=== PATIENT | female | born 1945 | race Caucasian/White ===

== ENCOUNTER → 2016-06-02 17:03 | Outpatient (CLI) | payer MEDICARE, OTHER ==
[2016-02-10 07:26] VITALS: BMI 31.2
[~2016-06-02 17:03] MED LIST: ACETAMINOPHEN325 MG PO; AMPYRA10 MG PO; ASPIRIN325 MG PO; BAYER CHEWABLE81 MG PO; COZAAR50 MG PO; CRESTOR10 MG PO; GLUCOTROL XL 5 M5 MG PO; LASIX20 MG PO; NORVASC5 MG PO; PLAVIX75 MG PO
== END | disposition home or self-care (01) ==
LOC: D.MAMMO 06-01 14:30
DX: Z12.31 Encounter for screening mammogram for malignant neoplasm of breast (principal)

== ENCOUNTER → 2017-09-23 10:00 | Outpatient (CLI) | payer MEDICARE, OTHER ==
[2016-02-10 07:26] VITALS: BMI 31.2
== END | disposition home or self-care (01) ==
LOC: D.MAMMO 10:00
DX: Z12.31 Encounter for screening mammogram for malignant neoplasm of breast (principal)

== ENCOUNTER → 2017-11-14 12:10 | Outpatient (CLI) | payer MEDICARE, OTHER ==
[2016-02-10 07:26] VITALS: BMI 31.2
== END | disposition home or self-care (01) ==
LOC: D.CT 12:10
DX: I71.4 Abdominal aortic aneurysm, without rupture (principal)

== ENCOUNTER 2018-10-04 08:00 | Outpatient (CLI) | payer MEDICARE, OTHER ==
[2016-02-10 07:26] VITALS: BMI 31.2
== END 2018-10-04 23:59 | disposition home or self-care (01) ==
LOC: D.MAMMO 08:00
PROVIDERS: ATTEND Nurse Practitioner Family
DX: Z12.31 Encounter for screening mammogram for malignant neoplasm of breast (principal)

== ENCOUNTER → 2018-11-15 08:31 | Outpatient (CLI) | payer MEDICARE, OTHER ==
[2016-02-10 07:26] VITALS: BMI 31.2
== END | disposition home or self-care (01) ==
LOC: D.US 08:31
PROVIDERS: ATTEND Internal Medicine Cardiovascular Disease
DX: I71.4 Abdominal aortic aneurysm, without rupture (principal)